=== PATIENT | female | born 1960 | race Caucasian/White ===

== ENCOUNTER 2017-11-27 10:15 | Outpatient (CLI) | END 2017-11-27 10:16 | disposition home or self-care (01) | LOC: RAD 10:15 | PROVIDERS: ATTEND Physician Assistant | DX: Z12.31 Encounter for screening mammogram for malignant neoplasm of breast (principal) | CPT/HCPCS: 77067 ==

== ENCOUNTER 2018-06-24 12:26 | Outpatient (CLI) ==
--- NOTE | 2018-06-24 16:38 | DI ---
EXAM: Chest two views HISTORY: Cough COMPARISON: None TECHNIQUE: Two views of the chest were performed FINDINGS: The lungs are clear. There is no pleural effusion or pneumothorax. The heart is normal i n size. The mediastinal contour is normal. There are no acute abnormalities of the bones. IMPRESSION: No acute cardiopulmonary process.
== END 2018-06-24 12:27 | disposition home or self-care (01) ==
LOC: RAD 12:26
PROVIDERS: ATTEND Nurse Practitioner Family
DX: R05 Cough (principal)